=== PATIENT | male | born 2000 | race African-American/Black ===

== ENCOUNTER 2021-04-15 13:40 | Outpatient (REF) | payer OTHER, SELFPAY | END 2021-04-15 13:41 | disposition home or self-care (01) | LOC: HO.LAB 13:40 | PROVIDERS: Visit Provider Internal Medicine | DX: Z20.822 Contact with and (suspected) exposure to COVID-19 (principal) | CPT/HCPCS: C9803; U0003; U0005 ==

== ENCOUNTER 2022-08-23 14:40 | Outpatient (REF) | payer OTHER, SELFPAY ==
[2022-08-23 15:30] LABS: COVID-19 Test Negative (Negative); IDNOW Serial# 9DB6401D
== END 2022-08-23 14:41 | disposition home or self-care (01) ==
LOC: HO.LAB 14:40
PROVIDERS: Visit Provider Internal Medicine
DX: Z20.822 Contact with and (suspected) exposure to COVID-19 (principal)
CPT/HCPCS: 87635; C9803

== ENCOUNTER 2022-10-13 09:13 | Emergency (ER) | payer OTHER, SELFPAY ==
[2022-10-13 09:25] VITALS: BP 143/77; PULSE 74; RESP 16; TEMP 36.4; O2SAT 100; BMI 25.0
--- NOTE | 2022-10-13 10:02 | ED.SKABFB ---
HPI - Skin/Abscess/Foreign Bdy General Chief complaint: Skin/Abscess/Foreign Body Stated complaint: rash all over body Time Seen by Provider: 10/13/22 09:38 Source: patient Mode of arrival: ambulatory History of Present Illness HPI narrative: 21-year-old male with a past medical history of eczema presenting to the ED complaining of worsening eczematous rash x months. Reports as PCP appointment in November, however cannot wait that long. States has never seen a taxi proprietor, and currently does not use any topical or oral medications. Denies new recent exposures, fever, chills, redness, drainage MD complaint: rash Related Data Previous Rx's Medication Instructions Recorded cetirizine 10 mg capsule (Zyrtec) 10 mg PO DAILY PRN allergy 10/13/22 symptoms #14 caps diphenhydramine HCl 25 mg capsule 25 mg PO TID PRN itching #14 caps 10/13/22 (Benadryl) hydrocortisone 1 % lotion 1 appl topical BID PRN rash #120 mL 10/13/22 (Anti-Itch (hydrocortisone)) prednisone 10 mg tablet 10 mg PO DAILY #20 tabs 10/13/22 Allergies Allergy/AdvReac Type Severity Reaction Status Date / Time FRUT SKINS Allergy Intermediate LIPS SWELL Uncoded 03/25/20 17:05 AND ITCHY Review of Systems Review of Systems: Constitutional: No Fever, No Chills ENT/Mouth: No Ear Pain, No Nasal Congestion, No sore throat, No Rhinorrhea, No Swallowing Difficulty Cardiovascular: No Chest Pain, No SOB Respiratory: No Cough, No Sputum Gastrointestinal: No Nausea, No Vomiting, No Diarrhea, No Constipation, No Abdominal pain Genitourinary: No Dysuria, No Urinary Frequency, No Hematuria, No Flank Pain Musculoskeletal: No joint pain, No Myalgias, No Joint Swelling Skin: No Skin Lesions, + rash Neuro: No Weakness Yes all other systems are reviewed and are negative Constitutional: Constitutional: Reports as per [facility] Past Medical History Attestation statement: The following information was validated with the patient. Social History Social History Advance Directives: No Advance Directives Information Provided: Yes Physical Exam Vital Signs: Vital Signs: Last Vital Signs Temp 97.5 F 10/13/22 09:25 Pulse 74 10/13/22 09:25 Resp 16 10/13/22 09:25 BP 143/77 H 10/13/22 09:25 Pulse Ox 100 10/13/22 09:25 O2 Del Method Room Air 10/13/22 09:25 BMI result Body Mass Index 25.0 Const: General: cooperative, healthy appearing and no acute distress Orientation/consciousness: patient oriented x3 Limitations: no limitations HEENT: Head: Yes normal to inspection and Yes atraumatic Ears: hearing grossly normal bilaterally General nose exam: Normal external nose present Face and sinus: Yes normal facial exam Throat: Yes posterior oropharynx normal, Yes tonsils normal, Yes uvula midline, No peritonsillar mass and No uvula laterally displaced Eyes: General: appearance normal, both eyes and all related structures EOM: EOMs intact bilaterally Neck: Neck: Yes normal visual inspection and Yes no meningeal signs Resp: Effort & Inspection: normal respiratory effort and no respiratory distress Auscultation: clear to auscultation bilaterally Cardio: Rate: regular rate Heart sounds: S1 normal heart sound present and S2 normal heart sound present GI: Inspection: Yes normal to inspection Palpation (GI): Soft to palpation, nontender, no guarding and not rigid Skin: Other: + diffuse eczematous rash/dry skin over entire body > abdomen. No palm or sole involvement. No mucous membrane involvement. No overlying erythema/drainage, fluctuance or induration Wounds: no wounds Neuro: General: patient oriented x3, tone normal and no meningeal signs Gait exam (Neuro): Normal gait present Extrem: General: Yes normal to inspection Medical Decision Making Medical Decision Making [facility] Narrative: 21-year-old male with a past medical history of eczema presenting to the ED complaining of worsening eczematous rash x months. On exam vital signs stable, NAD, nontoxic appearing, physical exam as above. No mucous membrane or palm/sole involvement. Exam consistent with eczema. No sloughing. Low suspicion for TENS/SJS Plan: PO Benadryl, Zyrtec, topical hydrocortisone, p.o. prednisone Please refer to course for remaining clinical decision making, interpretation of labs/imaging results, and discussions with consultants and/or family members. Differential Diagnosis Differential Diagnoses: The differential diagnosis associated with the presentation includes As above Admission/Observation Consideration of admission/observation: Escalation of care including admission/observation considered Lab Data MDM Lab Attestation statement: I reviewed the patient's lab results. Radiology Impression Discussion of test interpretation with radiology: I have reviewed the radiologist's reading. External Record Review External record reviewed: Inpatient record, Office record, Outpatient record, Prior outpatient labs, Prior outpatient radiology, Primary care record and Outside ED record Discharge Plan Discharge Clinical Impression: Eczema Patient Disposition: Home, Self-Care Instructions: Dermatitis (ED) Additional Instructions: Please avoid itching her skin Hydrocortisone as a topical steroid, apply to rash only. Please avoid application to face, hands, in genital region as potentially can discolored skin Prednisone as oral steroid Benadryl and Zyrtec will help with itching, Benadryl will make you drowsy, take at night You need to follow-up with her doctor and dermatology Prescriptions: New diphenhydramine HCl [Benadryl] 25 mg capsule 25 mg PO TID PRN (Reason: itching) Qty: 14 0RF Zyrtec 10 mg capsule 10 mg PO DAILY PRN (Reason: allergy symptoms) Qty: 14 0RF hydrocortisone [Anti-Itch (HC)] 1 % lotion 1 appl topical BID PRN (Reason: rash) Qty: 120 0RF prednisone 10 mg tablet 10 mg PO DAILY Qty: 20 0RF Taper: Prednisone 40 mg daily for 3 Days and 0 Hour 30 mg daily for 3 Days and 0 Hour 20 mg daily for 3 Days and 0 Hour 10 mg daily for 3 Days and 0 Hour Rx Instructions: prednisone 10 mg: take 4 tablets (40 mg) for 2 days; 3 tablets (30 mg) for 2 days; 2 (20mg) tablets for 2 days and then 1 (10mg) tablet for 2 days Referrals: Milka Asencio PA [Physician Deputy Fire Chief] - Mike Brown MD [Physician] - Douglas Paredes MD [Physician] - Physician,None [Primary Care Provider] - Stand Alone Forms: Work/School Release Interventions: ED Discharge Assessment Last Done: 10/13/22 10:45 Discharge Date/Time: 10/13/22 10:45
== END 2022-10-13 10:45 | disposition home or self-care (01) ==
PROVIDERS: Emergency Provider Internal Medicine
DX: L30.9 Dermatitis, unspecified (principal); R21 Rash and other nonspecific skin eruption
CPT/HCPCS: 99282; 99283

== ENCOUNTER 2023-09-15 07:26 | Emergency (ER) | payer OTHER, SELFPAY ==
[2023-09-15 07:29] VITALS: BP 135/86; PULSE 79; RESP 18; TEMP 36.1; O2SAT 98; BMI 23.2
--- NOTE | 2023-09-15 07:53 | ED_ITS ---
HPI - Back Pain/Injury General Chief Complaint: Back Pain/Injury Stated Complaint: Low back pain Time Seen by Provider: 09/15/23 07:52 Source: patient Mode of arrival: ambulatory Limitations: no limitations History of Present Illness HPI Narrative: Patient is a 22-year-old male who presents emergency department for evaluation of back pain. He reports 3 days ago he was moving some furniture around when he felt a pulling sensation in the left lower back and an aching pain. Pain is now radiating down the left leg. Denies any history of prior back pain in the past. Denies fevers, chills, burning with micturition, urinary frequency/urgency/hesitancy, bladder or bowel dysfunction, numbness or tingling of the perineum or bilateral legs. Denies any recent surgical procedures, any known immune compromising conditions, personal history of cancer, or IV drug usage. MD elicited complaint: back pain Related Data Previous Rx's Medication Instructions Recorded cetirizine 10 mg capsule (Zyrtec) 10 mg PO DAILY PRN allergy 10/13/22 symptoms #14 caps diphenhydramine HCl 25 mg capsule 25 mg PO TID PRN itching #14 caps 10/13/22 (Benadryl) hydrocortisone 1 % lotion 1 appl topical BID PRN rash #120 mL 10/13/22 (Anti-Itch (hydrocortisone)) prednisone 10 mg tablet 10 mg PO DAILY #20 tabs 10/13/22 cyclobenzaprine 10 mg tablet 10 mg PO TID PRN muscle spasm #14 09/15/23 tabs lidocaine 5 % topical patch 1 patch topical DAILY #15 ea 09/15/23 (Lidoderm) Allergies Allergy/AdvReac Type Severity Reaction Status Date / Time FRUT SKINS Allergy Intermediate LIPS SWELL Uncoded 03/25/20 17:05 AND ITCHY Review of Systems 2 Review of Systems: Constitutional: No weight loss, fever, chills, weakness or fatigue. HEENT: No visual loss, blurred vision, double vision. No hearing loss, sneezing, congestion, runny nose or sore throat. Skin: No rash or itching. Cardiovascular: No chest pain, chest pressure or chest discomfort. No palpitations or pedal edema. Respiratory: No shortness of breath, cough or sputum production. Gastrointestinal: No anorexia, nausea, vomiting or diarrhea. No abdominal pain or blood in stool. Genitourinary: No burning micturition. No urinary frequency or incontinence. Neurologic: No headache, dizziness, syncope, unilateral weakness, ataxia, numbness or tingling in the extremities. No change in bowel or bladder control. Musculoskeletal: + Back pain as noted in HPI. No joint pain or stiffness. Hematologic: No bleeding or bruising. Lymphatics: No enlarged lymph nodes. Psychiatric:No depression or anxiety. Endocrine: No reports of sweating. No cold or heat intolerance. No polyuria or polydipsia. Yes all other systems are reviewed and are negative [facility] Past Medical History Attestation statement: The following information was validated with the patient. Source: old records reviewed Physical Exam Vital Signs: Vital Signs: Last Vital Signs Temp 97 F 09/15/23 07:29 Pulse 79 09/15/23 07:29 Resp 18 09/15/23 07:29 BP 135/86 09/15/23 07:29 Pulse Ox 98 09/15/23 07:29 O2 Del Method Room Air 09/15/23 07:29 BMI result Body Mass Index 23.2 Vital signs have been reviewed as normal and appeared to be correct. Blood pressure normal.? Heart rate normal.? Respiration rate normal. Temperature normal.? Oxygen saturation normal. Appearance: Alert.?Oriented to person, place and time. No acute distress.?Normal affect. Eyes: Pupils equal, round and reactive to light.? ENT: Pharynx normal.?? Neck: Normal inspection.? Neck supple.?? CVS: Heart sounds normal. Normal heart rate and rhythm.? Pulses normal; bilateral radial pulses 2+, bilateral posterior tibial/dorsalis pedis pulses 2+.? Respiratory: No respiratory distress.? Lung sounds clear to auscultation bilaterally?? Abdomen: Soft and non-tender. Normoactive bowel sounds. No pulsatile mass.?? Skin: Skin warm and dry.? Normal skin color.? Normal skin turgor.?? Extremities: No lower extremity edema.? No calf ttp? Back: + mild paraspinal muscular tenderness from lumbar region to coccyx. No CVA tenderness. No midline spinal tenderness, step-off's, or deformity. Full ROM intact in bilateral lower extremities. Straight leg test negative on right; Straight leg test positive on left. No rashes, lesions, areas of induration or fluctuance, or signs of infection noted., Neuro: Moves all extremities spontaneously. 5/5 strength in hip extension/flexion, abduction, adduction. Sensation to light touch intact bilaterally. Patellar and Achilles reflex 2+ bilaterally. No ataxia, gait normal and steady.. No focal neuro deficits. Medical Decision Making Medical Decision Making [facility] Narrative: Patient is a 22-year-old male who presents emergency department for evaluation of back pain as per HPI. Based on history and physical examination Pain is most consistent with muscular pain, although cannot completely exclude herniated disc. On neurological exam there are no deficits. Not consistent with spinal fracture, spinal infection, epidural abscess, AAA, epidural abscess, or dissection. No high risk past medical history including incontinence, fever, immunosuppression, recent surgery or lumbar puncture, coagulopathy, significant trauma, recent unintentional weight loss, pulsatile mass, history of cancer, history of TB, history of IV drug use that would warrant MRI or CT. Not consistent with pyelonephritis, urinary tract infection, renal calculi, appendicitis, diverticulitis. On exam no concern for cauda equina syndrome. No imaging is currently indicated at this time. He is trialed acetaminophen at home without any improvement, he did walk here today therefore discussed with him concern for medicating with muscle relaxer in the emergency department, he will be sent home with a prescription for it in addition to a work note and follow-up with primary care provider, and patient agreed with plan. Differential Diagnosis Differential Diagnoses: The differential diagnosis associated with the presentation includes (As noted above) Admission/Observation Consideration of admission/observation: Escalation of care including admission/observation considered (As noted above) Tests considered The following testing was considered but not selected: See narrative above Prescription Management I considered prescription management with: Pain Medication Discharge Plan Discharge Clinical Impression: Lumbar radiculopathy Patient Disposition: Home, Self-Care Instructions: Lumbar Radiculopathy (ED), Lower Back Exercises (ED) Additional Instructions: You can take ibuprofen 200 mg, 3 tablets (600mg) every 6-8 hours as needed for pain, in addition to Tylenol 500 mg, 2 tablets (1,000mg) every 4-6 hours as needed for pain, but not to exceed 3 doses daily (3,000mg).? As discussed, the muscle relaxer; cyclobenzaprine/Flexeril may make you drowsy, you should not drive, drink alcohol, or work while taking that medication. Apply Lidoderm patch to the area on your left back of most pain leave on for 12 hours and then remove for 12 hours. Follow-up with your primary care provider. You may return back to emergency department any new or worsening symptoms or concerns. Prescriptions: New lidocaine [Lidoderm] 5 % adhesive patch,medicated 1 patch topical DAILY Qty: 15 0RF Rx Instructions: leave on most painful area for up to 12 hrs cyclobenzaprine 10 mg tablet 10 mg PO TID PRN (Reason: muscle spasm) Qty: 14 0RF No Action diphenhydramine HCl [Benadryl] 25 mg capsule 25 mg PO TID PRN (Reason: itching) Qty: 14 0RF Zyrtec 10 mg capsule 10 mg PO DAILY PRN (Reason: allergy symptoms) Qty: 14 0RF hydrocortisone [Anti-Itch (HC)] 1 % lotion 1 appl topical BID PRN (Reason: rash) Qty: 120 0RF prednisone 10 mg tablet 10 mg PO DAILY Qty: 20 0RF Taper: Prednisone 40 mg daily for 3 Days and 0 Hour 30 mg daily for 3 Days and 0 Hour 20 mg daily for 3 Days and 0 Hour 10 mg daily for 3 Days and 0 Hour Rx Instructions: prednisone 10 mg: take 4 tablets (40 mg) for 2 days; 3 tablets (30 mg) for 2 days; 2 (20mg) tablets for 2 days and then 1 (10mg) tablet for 2 days Referrals: Physician,None [Primary Care Provider] - Stand Alone Forms: Work/School Release
== END 2023-09-15 08:21 | disposition home or self-care (01) ==
PROVIDERS: Emergency Provider Student in an Organized Health Care Education/Training Program
DX: M54.16 Radiculopathy, lumbar region (principal)
CPT/HCPCS: 99282; 99283

== ENCOUNTER 2024-08-22 16:21 | Emergency (ER) | payer MEDICAID, SELFPAY ==
[2024-08-22 17:49] VITALS: BP 144/91; PULSE 71; RESP 18; TEMP 36.3; O2SAT 100; BMI 28.1
--- NOTE | 2024-08-22 17:50 | ED.GENADULT ---
HPI - General Adult General Chief complaint: Skin/Abscess/Foreign Body Stated complaint: left foot pinky pain / congestion Time Seen by Provider: 08/22/24 17:50 Source: patient, RN notes reviewed and old records reviewed Mode of arrival: ambulatory Limitations: no limitations History of Present Illness ED Provider: Violette HPI narrative: 23-year-old male presents for evaluation of redness and swelling to his left 5th toe. He reports that he stubbed the toe 4 days ago. He states that the area swelled up and he had pus draining from it which he popped This happened a 2nd time just behind the nail and he popped this yesterday. He reports his pain is improved but states that the swelling is starting to return and he was concerned about an infection No fevers or chills Related Data Previous Rx's ?Medication ?Instructions ?Recorded cetirizine 10 mg capsule (Zyrtec) 10 mg PO DAILY PRN allergy 10/13/22 symptoms #14 caps diphenhydramine HCl 25 mg capsule 25 mg PO TID PRN itching #14 caps 10/13/22 (Benadryl) hydrocortisone 1 % lotion 1 appl topical BID PRN rash #120 mL 10/13/22 (Anti-Itch (hydrocortisone)) prednisone 10 mg tablet 10 mg PO DAILY #20 tabs 10/13/22 cyclobenzaprine 10 mg tablet 10 mg PO TID PRN muscle spasm #14 09/15/23 tabs lidocaine 5 % topical patch 1 patch topical DAILY #15 ea 09/15/23 (Lidoderm) cephalexin 500 mg capsule 500 mg PO QID #28 caps 08/22/24 Allergies Allergy/AdvReac Type Severity Reaction Status Date / Time FRUT SKINS Allergy Intermediate LIPS SWELL Uncoded 08/22/24 17:53 AND ITCHY Review of Systems Constitutional: Constitutional: Denies chills and Denies fever(s) Musculoskeletal: Musculoskeletal: Reports arthralgias Integumentary/Breasts: Skin/Breast: Reports erythema and Denies wounds PMFSH Social History Social History Advance Directives: No Advance Directives Information Provided: No Physical Exam ED Vital Signs: Vital Signs - 24 hr 08/22/24 17:49 Temperature 97.4 F Pulse Rate 71 Respiratory Rate 18 Blood Pressure 144/91 H Pulse Oximetry 100 Oxygen Delivery Method Room Air BMI result Body Mass Index 28.1 Const General: healthy appearing, comfortable, no acute distress, alert and awake Nutritional Appearance: well nourished Orientation/consciousness: patient oriented x3 HENMT Head: Yes normocephalic and Yes atraumatic Eyes Eyelids: Yes eyelids normal Conjunctivae: conjunctivae normal Sclerae: sclerae normal Corneas: corneas normal Pupils: Equal, round and reactive pupils present EOM: EOMs intact bilaterally Neck Neck: Yes full ROM Resp Effort & Inspection: normal respiratory effort, able to speak in complete sentences and not labored Skin General skin exam: elasticity normal Neuro General: patient oriented x3 Cranial nerves: Yes Equal, round and reactive pupils present and Yes Bilaterally intact EOM present Cognition (Neuro): normal cognition Extrem Other: Patient has mild erythema with some edema proximal to the left 5th toe nail plate. Medical Decision Making Medical Decision Making MDM Narrative: 23-year-old male presents for evaluation of left 5th toe pain and swelling. I discussed x-ray imaging with the patient but the patient declined stating he does not feel his toe is broken. He was appear to have a mild paronychia. We will treat with cephalexin. He has no open wounds, there was no risk for open fracture. Differential Diagnosis Differential Diagnoses: The differential diagnosis associated with the presentation includes Paronychia Contusion Subungual hematoma Toe fracture Tests considered The following testing was considered but not selected: Consider x-ray of the left 5th toe with the patient declines Prescription Management I considered prescription management with: Antibiotic Discharge Plan Discharge Clinical Impression: Toe pain, left Patient Disposition: Home, Self-Care Instructions: Paronychia (ED) Additional Instructions: Take the antibiotics 4 times daily for 1 week. You may apply warm compresses Use ibuprofen/Tylenol as needed for pain. Follow-up with your primary doctor Prescriptions: New cephalexin 500 mg capsule 500 mg PO QID Qty: 28 0RF No Action diphenhydramine HCl [Benadryl] 25 mg capsule 25 mg PO TID PRN (Reason: itching) Qty: 14 0RF Zyrtec 10 mg capsule 10 mg PO DAILY PRN (Reason: allergy symptoms) Qty: 14 0RF hydrocortisone [Anti-Itch (HC)] 1 % lotion 1 appl topical BID PRN (Reason: rash) Qty: 120 0RF prednisone 10 mg tablet 10 mg PO DAILY Qty: 20 0RF Taper: Prednisone 40 mg daily for 3 Days and 0 Hour 30 mg daily for 3 Days and 0 Hour 20 mg daily for 3 Days and 0 Hour 10 mg daily for 3 Days and 0 Hour Rx Instructions: prednisone 10 mg: take 4 tablets (40 mg) for 2 days; 3 tablets (30 mg) for 2 days; 2 (20mg) tablets for 2 days and then 1 (10mg) tablet for 2 days lidocaine [Lidoderm] 5 % adhesive patch,medicated 1 patch topical DAILY Qty: 15 0RF Rx Instructions: leave on most painful area for up to 12 hrs cyclobenzaprine 10 mg tablet 10 mg PO TID PRN (Reason: muscle spasm) Qty: 14 0RF Stand Alone Forms: Work/School Release Print Language: Peruvian
[2024-08-22 19:16] VITALS: BP 144/91; PULSE 71; RESP 18; TEMP 36.3; O2SAT 100
== END 2024-08-22 19:16 | disposition home or self-care (01) ==
PROVIDERS: Emergency Provider Emergency Medicine
DX: M79.675 Pain in left toe(s) (principal)
CPT/HCPCS: 99282; 99283

== ENCOUNTER 2025-01-07 02:06 | Emergency (ER) | payer OTHER, SELFPAY ==
--- NOTE | ~2025-01-07 | XR_ITS ---
CLINICAL HISTORY: cough, fever 2 view chest x-ray. Comparison: None Findings: The lungs appear clear. There is no consolidation, effusion, or nodule identified. Cardiomediastinal silhouette is within normal limits. IMPRESSION: No acute cardiopulmonary abnormality. This document has been electronically signed by: Forrest Alcala MD on 01/07/2025 03:38:53
[2025-01-07 02:11] VITALS: BP 141/81; PULSE 100; RESP 20; TEMP 37.1; O2SAT 98; BMI 27.4
--- NOTE | 2025-01-07 02:31 | ED_ITS ---
HPI - URI/Sore Throat General Chief Complaint: General Medical Stated Complaint: ? sinus infection Time Seen by Provider: 01/07/25 02:26 Source: patient Mode of arrival: ambulatory Limitations: no limitations History of Present Illness ED Provider: ANNIE JERRY Narrative: 24 yo male with remote hx of asthma no current inhalers who presents with c/o 1 week of cough, congestion, headaches, sore throat, chills, body aches - he denies travel. He has been taking any OTC he can take last dose yesterday AM. 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 He is able to drink fluids. MD elicited complaint: fever, cough, sore throat, rhinorrhea, nasal congestion and sinus pain Onset (ago): week(s) (1) Consistency: constant Severity: moderate Description of mucous: clear Able to tolerate fluids by mouth: Yes Exacerbating factors: swallowing and leaning forward Relieving factors: nothing Context: sick contacts Associated symptoms: fever, chills, myalgias, headache, rhinorrhea, nasal congestion, sore throat and cough Treatments prior to arrival: acetaminophen, ibuprofen and cold medicine Related Data Previous Rx's ?Medication ?Instructions ?Recorded cetirizine 10 mg capsule (Zyrtec) 10 mg PO DAILY PRN a llergy 10/13/22 symptoms #14 caps diphenhydramine HCl 25 mg capsule 25 mg PO TID PRN itc fabiola #14 caps 10/13/22 (Benadryl) hydrocortisone 1 % lotion 1 appl topical BID PRN rash #120 mL 10/13/22 (Anti-Itch (hydrocortisone)) prednisone 10 mg tablet 10 mg PO DAILY #20 tabs 04/01/28 cyclobenzaprine 10 mg tablet 10 mg PO TID PRN muscle s pasm #14 09/15/23 tabs lidocaine 5 % topical patch 1 patch topical DAILY #15 ea 09/15/23 (Lidoderm) cephalexin 500 mg capsule 500 mg PO QID #28 caps 08/22 amoxicillin 500 mg capsule 500 mg PO BID 10 days #20 c aps 01/07/25 prednisone 20 mg tablet 40 mg (2 x 20 mg) PO DAILY 4 days 01/07/25 #8 tabs Allergies Allergy/AdvReac Type Severity Reaction Status Date / Time FRUT SKINS Allergy Intermediate LIPS SWELL Uncoded 01/07/25 02:14 AND ITCHY Review of Systems Review of Systems: Constitutional : positive Fever, positive Chills, positive fatigue, positive Malaise ENT/Mouth : positive sore throat, positive runny nose Eyes: No Discharge Cardiovascular : No Chest Pain, No SOB Respiratory : pos Cough, No Sputum Gastrointestinal : No Nausea, No Vomiting, No Diarrhea Genitourinary : No Dysuria, No Urinary Frequency Musculoskeletal : positive Myalgia Skin : No rash Neuro : pos Headache all other systems reviewed and are negative [facility] Past Medical History Attestation statement: The following information was validated with the patient. Source: old records reviewed Medical History (Updated 01/07/25 @ 03:21 by Brenda Alan DO) Asthma Social History Social History (Updated 01/07/25 @ 03:14 by Brenda Alan DO) Patient Tobacco Use Status: Never used Tobacco Advance Directives: No Do you have a plan to hurt others: No Plan Physical Exam Vital Signs: Vital Signs: Last Vital Signs Temp 98.7 F 01/07/25 03:00 Pulse 100 01/07/25 02:11 Resp 20 01/07/25 02:11 BP 141/81 H 01/07/25 02:11 Pulse Ox 98 01/07/25 02:11 O2 Del Method Room Air 01/07/25 02:11 BMI result Body Mass Index 27.4 Appearance: Alert. Oriented X3. No acute distress. Eyes: Pupils equal, round and reactive to light. ENT: Pharynx erythema with mild tonsilar swelling but petechia noted on uvula, uvula is midline, voice is normal Neck: Normal inspection. Neck supple. CVS: Normal heart rate and rhythm. Pulses normal. Respiratory: No respiratory distress. Breath sounds slightly diminished upper lobes with faint end exp wheezes Abdomen: Soft and nontender. Skin: Skin warm and dry. Normal skin color. Extremities: No lower extremity edema. Neuro: Oriented X 3. No motor deficit. No sensory deficit. CN2-12 intact Medications Administered Discontinued Medications Generic Name Dose Route Start Last Admin Trade Name Freq PRN Reason Stop Dose Admin Albuterol Sulfate 2 puff 01/07/25 02:44 01/07/25 02:55 Albuterol Sulfate 90 Mcg 8 Gm Inhaler INHALE 01/07/25 02:45 2 puff ONCE ONE Administration Ketorolac Tromethamine 30 mg 01/07/25 02:44 01/07/25 02:55 Ketorolac Tromethamine 30 Mg/Ml Vial IM 01/07/25 02:45 30 mg ONCE ONE Administration Prednisone 40 mg 01/07/25 02:44 01/07/25 02:55 Prednisone 20 Mg Tablet PO 01/07/25 02:45 40 mg ONCE ONE Administration Medical Decision Making Medical Decision Making MDM Narrative: 24 yo male with remote hx of asthma here with c/o URI symptoms, not feeling well, cough, he has some wheezes on exam I ordered prednisone, albuterol and will need CXR, viral panel, strep swab. He has no signs of deeper space infection. He is not toxic appearing and no labored breathing. Differential Diagnosis Differential Diagnoses: The differential diagnosis associated with the pre sentation includes URI, viral sydnrome, bronchitis, strep, sinus infection Admission/Observation Consideration of admission/observation: Escalation of care including admission/observation considered not toxic stable for DC Lab Data [facility] Lab Attestation statement: I reviewed the patient's lab results. Labs: Lab Results 01/07/25 Range/Units 02:30 Influenza Type A (PCR) NEGATIVE (Negative) Influenza Type B (PCR) NEGATIVE (Negative) RSV RNA Qual (PCR) NEGATIVE (Negative) SARS-CoV-2 RNA (RT-PCR) NEGATIVE (Negative) S. pyogenes GrpA CHRISTIANA Positive A (Negative) Independent Interpretation I performed an independent interpretation of an: Plain X-Ray (normal ) Radiology Impression Discussion of test interpretation with radiology: I have reviewed the radiologist's reading. External Record Review External record reviewed: Outpatient record Prescription Management I considered prescription management with: Antibiotic and Other Discharge Plan Discharge Clinical Impression: Strep throat Patient Disposition: Home, Self-Care Instructions: Strep Throat (ED) Additional Instructions: rest and stay hydrated positive for strep throat negative for covid flu rsv chest xray normal take all medications with food throw away toothbrush in 24 hours return for any worsening symptoms or concerns can use inhaler 2 puffs every 4 hours for wheezing Prescriptions: New amoxicillin 500 mg capsule 500 mg PO BID 10 Days Qty: 20 0RF prednisone 20 mg tablet 40 mg PO DAILY 4 Days Qty: 8 0RF No Action diphenhydramine HCl [Benadryl] 25 mg capsule 25 mg PO TID PRN (Reason: itching) Qty: 14 0RF Zyrtec 10 mg capsule 10 mg PO DAILY PRN (Reason: allergy symptoms) Qty: 14 0RF hydrocortisone [Anti-Itch (HC)] 1 % lotion 1 appl topical BID PRN (Reason: rash) Qty: 120 0RF prednisone 10 mg tablet 10 mg PO DAILY Qty: 20 0RF Taper: Prednisone 40 mg daily for 3 Days and 0 Hour 30 mg daily for 3 Days and 0 Hour 20 mg daily for 3 Days and 0 Hour 10 mg daily for 3 Days and 0 Hour Rx Instructions: prednisone 10 mg: take 4 tablets (40 mg) for 2 days; 3 tablets (30 mg) for 2 days; 2 (20mg) tablets for 2 days and then 1 (10mg) tablet for 2 days lidocaine [Lidoderm] 5 % adhesive patch,medicated 1 patch topical DAILY Qty: 15 0RF Rx Instructions: leave on most painful area for up to 12 hrs cyclobenzaprine 10 mg tablet 10 mg PO TID PRN (Reason: muscle spasm) Qty: 14 0RF cephalexin 500 mg capsule 500 mg PO QID Qty: 28 0RF Stand Alone Forms: Work/School Release Print Language: Telugu
[2025-01-07] MEDS: Albuterol Sulfate 90 MCG 8 GM INHALER 2 PUFF INHALE (02:55)
[2025-01-07 03:00] VITALS: TEMP 37.1
[2025-01-07 03:09] LABS: IDNOW Serial# 58CA691E; Strep A Nucleic Acid Positive (Negative)
[2025-01-07 03:31] LABS: Resp Syncy Virus RNA Qual PCR NEGATIVE (Negative); SARS COV2 PCR INHOUSE NEGATIVE (Negative)
[2025-01-07 03:52] VITALS: BP 132/82; PULSE 84; RESP 16; TEMP 37.1; O2SAT 98
== END 2025-01-07 03:54 | disposition home or self-care (01) ==
PROVIDERS: Emergency Provider Emergency Medicine
DX: J02.0 Streptococcal pharyngitis (principal); B95.0 Streptococcus, group A, as the cause of diseases classified elsewhere; R05.9 Cough, unspecified; R09.81 Nasal congestion; R51.9 Headache, unspecified; J02.9 Acute pharyngitis, unspecified
CPT/HCPCS: 71046; 87637; 87651; 96372; 99284; J1885

== ENCOUNTER → 2025-01-07 02:44 | Outpatient (BNV) | payer OTHER, SELFPAY | PROVIDERS: Emergency Provider Emergency Medicine; Visit Provider Radiology Diagnostic Radiology | DX: R05.9 Cough, unspecified (principal); R50.9 Fever, unspecified | CPT/HCPCS: 71046 ==

== ENCOUNTER 2025-06-07 05:16 | Emergency (ER) | payer OTHER, SELFPAY ==
[2025-06-07 05:19] VITALS: BP 159/74; PULSE 84; RESP 16; TEMP 36.9; O2SAT 96; BMI 28.8
[2025-06-07 05:36] LABS: MANUAL DIFF FLAG NO
[2025-06-07 05:37] LABS: Hematocrit 47.3 % (42.0-52.0); Hemoglobin 15.6 g/dl (14.0-18.0); Imm Gran Abs Auto 0.02 X10*3/uL (0.00-0.03); Imm Gran Pct Auto 0.2 % (0.0-0.4); Lymphocytes Absolute Auto 2.3 X10*3/uL (1.2-4.9); Mean Corpuscular HGB Conc 33.0 g/dl (31.0-36.0); Mean Corpuscular Hemoglobin 29.1 pg (27.0-33.0); Mean Corpuscular Volume 88.1 fL (80.0-98.0); NRBC Abs Auto 0.000 X10*3/uL (0.0-0.012); NRBC Pct Auto 0.0 /100WBC (0.0-0.2); Platelet Count 247 X10*3/uL (160-400); Red Blood Count 5.37 X10*6/uL (4.60-5.80); White Blood Count 10.8 X10*3/uL (4.8-10.8)
[2025-06-07 05:58] LABS: Alanine Aminotransferase 21 U/L (0-40); Albumin Level 4.7 g/dL (3.5-5.0); Alkaline Phosphatase 97 U/L (39-117); Anion Gap 14 (12-20); Aspartate Amino Transferase 28 U/L (5-37); Blood Urea Nitrogen 12 mg/dL (9-16); Calcium 9.0 mg/dL (8.4-10.2); Carbon Dioxide 24 mmol/L (22-29); Chloride 107 mmol/L (96-108); Creatinine Clr Calc Pharmacy 123.4; Estimated Glomerular Filt Rate > 60; Magnesium 1.7 mg/dL (1.6-2.6); Potassium 3.9 mmol/L (3.3-5.1); Sodium 141 mmol/L (135-145); Total Protein 8.0 g/dL (6.5-8.0)
[2025-06-07 06:13] LABS: Resp Syncy Virus RNA Qual PCR NEGATIVE (Negative); SARS COV2 PCR INHOUSE NEGATIVE (Negative)
--- NOTE | 2025-06-07 07:51 | ED_ITS ---
HPI - URI/Sore Throat General Chief Complaint: Upper Respiratory Symptoms Stated Complaint: Cough Congestion Running Nose Time Seen by Provider: 06/07/25 07:20 Source: patient Mode of arrival: ambulatory Limitations: no limitations History of Present Illness ED Provider: DURAN Laura HPI Narrative: Chief Complaint: ?I?ve had a wet cough for about two weeks and I?m tired of it.? History of Present Illness: The patient is a 24-year-old male who presents with a two-week history of a productive, wet cough. Sputum is described as thick and yellow. He reports intermittent subjective fevers at home that improve with ibuprofen. He has experienced two episodes of nausea and vomiting since yesterday but denies abdominal pain. He is seeking care today because the cough persists and he generally feels unwell. Past history is notable for remote asthma; he does not routinely use inhalers and states his asthma has been well controlled without complications. Related Data Previous Rx's ?Medication ?Instructions ?Recorded cetirizine 10 mg capsule (Zyrtec) 10 mg PO DAILY PRN a llergy 10/13/22 symptoms #14 caps diphenhydramine HCl 25 mg capsule 25 mg PO TID PRN itc fabiola #14 caps 10/13/22 (Benadryl) hydrocortisone 1 % lotion 1 appl topical BID PRN rash #120 mL 10/13/22 (Anti-Itch (hydrocortisone)) prednisone 10 mg tablet 10 mg PO DAILY #20 tabs 01/28 cyclobenzaprine 10 mg tablet 10 mg PO TID PRN muscle s pasm #14 09/15/23 tabs lidocaine 5 % topical patch 1 patch topical DAILY #15 ea 09/15/23 (Lidoderm) cephalexin 500 mg capsule 500 mg PO QID #28 caps 08/22 amoxicillin 500 mg capsule 500 mg PO BID 10 days #20 c aps 01/07/25 prednisone 20 mg tablet 40 mg (2 x 20 mg) PO DAILY 4 days 01/07/25 #8 tabs albuterol sulfate 90 mcg/actuation 2 inh inhalation Q4 -6H PRN 06/07/25 breath activated powder inhaler shortness of breath or wheezing #1 ea benzonatate 100 mg capsule 100 mg PO BID PRN cough #20 caps 06/07/25 doxycycline hyclate 100 mg capsule 100 mg PO BID 10 da ys #20 caps 06/07/25 prednisone 20 mg tablet 40 mg (2 x 20 mg) PO DAILY 5 days 06/07/25 #10 tabs Allergies Allergy/AdvReac Type Severity Reaction Status Date / Time FRUT SKINS Allergy Intermediate LIPS SWELL Uncoded 06/07/25 05:24 AND ITCHY Review of Systems 2 Review of Systems: Yes all other systems are reviewed and are negative [facility] Past Medical History Attestation statement: The following information was validated with the patient. Source: old records reviewed and nursing notes reviewed Medical History Asthma Social History Social History Patient Tobacco Use Status: Never used Tobacco Smoked in Last 30 Days: No Use of substances other than those prescribed or required for medical reasons: No Advance Directives: No Advance Directives Information Provided: Yes Do you have a plan to hurt others: No Plan Physical Exam 2 Exam: Exam: General: Well-appearing male in no acute distress. Cardiovascular: Regular rate and rhythm. Respiratory: Crackles auscultated in the right lower lobe; lungs otherwise clear to auscultation bilaterally. Abdomen: Soft, non-tender, non-distended. Strength: 5/5 UE and LE Neurological: Alert and oriented ?4; cranial nerves II?XII grossly intact. Vital Signs: Vital Signs: Last Vital Signs Temp 98.4 F 06/07/25 08:22 Pulse 76 06/07/25 08:22 Resp 18 06/07/25 08:22 BP 136/64 06/07/25 08:22 Pulse Ox 99 06/07/25 08:22 O2 Del Method Room Air 06/07/25 08:22 BMI result Body Mass Index 28.8 vss Course Reevaluation(s) Reevaluation #1: CBC unremarkable. Chemistry with no acute findings needing intervention. Flu, COVID, RSV negative. Patient's vital signs stable he saturating 99% on room air even after ambulation. Patient to be discharged home with p.o. antibiotics steroids and something for cough. Educated patient on diagnosis and treatment plan, answered all question, patient verbalizes understanding. At this time patient will be discharged home, advised to return with new or worsening symptoms. Educated on worrisome signs and symptoms and when to return. At this time I feel comfortable discharge home. Time: 08:25 Medical Decision Making Medical Decision Making [facility] Narrative: 0800 The clinical presentation and exam are most consistent with a right lower lobe pneumonia/bronchitis. Problem #1: Right lower lobe pneumonia / bronchitis Assessment: Two-week productive cough with yellow sputum, intermittent fevers, and focal crackles in the right lower lobe support an infectious etiology (community-acquired pneumonia vs. bronchitis). Plan: * Doxycycline 100 mg orally twice daily for 7 days. * Prednisone (dose discussed with patient). * Benzonatate pearls for cough suppression. * Chest X-ray was considered but deferred as findings would not alter current treatment. * Advised to return with no worsening symptoms. Problem #2: History of asthma (remote, generally well controlled) Assessment: Remote asthma without current daily therapy; no acute exacerbation noted today. Plan: * Rescue inhaler provided for symptomatic relief as needed. Disposition * Patient will be discharged home. * Work note provided excusing patient from work until Sunday. Differential Diagnosis Differential Diagnoses: The differential diagnosis associated with the presentation includes * Community-acquired pneumonia: Most likely, given the presence of focal crackles in the right lower lobe, productive cough with yellow sputum, and intermittent fevers. * Acute bronchitis: Also possible, as the patient has a prolonged cough and sputum production, though focal crackles and fever make pneumonia more likely. * Asthma exacerbation: Less likely, given the remote history of asthma, lack of current wheezing, and absence of inhaler use or recent symptoms. * Viral respiratory infection (e.g., influenza, RSV): Considered, as viral infections can cause cough and fever, but the focal exam findings and sputum color suggest a bacterial process. * Post-infectious cough: Possible, but less likely given ongoing fever and focal lung findings. * Atypical pneumonia (e.g., Mycoplasma): Less likely, as these typically present with more diffuse symptoms and less focal exam findings. * Pulmonary embolism: Unlikely, but should be considered if symptoms worsen or new risk factors develop, as PE can present with cough and nonspecific symptoms. Admission/Observation Consideration of admission/observation: Escalation of care including admission/observation considered (No indication . VSS ) Lab Data [facility] Lab Attestation statement: I reviewed the patient's lab results. 06/07/25 05:31 06/07/25 05:31 Labs: Lab Results 06/07/25 Range/Units 05:31 WBC 10.8 (4.8-10.8) X10*3/uL RBC 5.37 (4.60-5.80) X10*6/uL Hgb 15.6 (14.0-18.0) g/dl Hct 47.3 (42.0-52.0) % MCV 88.1 (80.0-98.0) fL MCH 29.1 (27.0-33.0) pg MCHC 33.0 (31.0-36.0) g/dl RDW 12.9 (11.0-16.0) % Plt Count 247 (160-400) X10*3/uL MPV 8.5 L (9.4-12.4) fL Immature Gran % (Auto) 0.2 (0.0-0.4) % Neut % (Auto) 64.8 (45-73) % Lymph % (Auto) 21.5 (20-40) % [place] % (Auto) 10.4 (2-11) % Eos % (Auto) 2.5 (0-4) % Baso % (Auto) 0.6 (0-2) % Lymph # (Auto) 2.3 (1.2-4.9) X10*3/uL [place] # (Auto) 1.1 (0.1-1.2) X10*3/uL Eos # (Auto) 0.3 (0.0-0.4) X10*3/uL Baso # (Auto) 0.1 (0.0-0.2) X10*3/uL Abs Immat Gran (auto) 0.02 (0.00-0.03) X10*3/uL Absolute Neuts (auto) 7.0 (2.0-8.3) x10*3/uL Absolute Nucleated RBC 0.000 (0.0-0.012) X10*3/uL Nucleated RBC % (auto) 0.0 (0.0-0.2) /100WBC Sodium 141 (135-145) mmol/L Potassium 3.9 (3.3-5.1) mmol/L Chloride 107 (96-108) mmol/L Carbon Dioxide 24 (22-29) mmol/L Anion Gap 14 (12-20) BUN 12 (9-16) mg/dL Creatinine 1.25 (0.5-1.4) mg/dL Estim Creat Clear Calc 123.4 Estimated GFR > 60 Random Glucose 96 (60-115) mg/dL Calcium 9.0 (8.4-10.2) mg/dL Magnesium 1.7 (1.6-2.6) mg/dL Total Bilirubin 0.5 (0.0-1.0) mg/dL AST 28 (5-37) U/L ALT 21 (0-40) U/L Alkaline Phosphatase 97 (39-117) U/L Total Protein 8.0 (6.5-8.0) g/dL Albumin 4.7 (3.5-5.0) g/dL Influenza Type A (PCR) NEGATIVE (Negative) Influenza Type B (PCR) NEGATIVE (Negative) RSV RNA Qual (PCR) NEGATIVE (Negative) SARS-CoV-2 RNA (RT-PCR) NEGATIVE (Negative) External Record Review External record reviewed: Office record, Outpatient record, Prior outpatient labs and Prior outpatient radiology Tests considered The following testing was considered but not selected: Consider chest x-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 If you were prescribed antibiotics today, it is important that you take your medication to their entirety, do not skip any doses, do not finish them early. Follow-up with your primary care provider this week. Return to the emergency department with new or worsening symptoms. In case of emergency call 911 Prescriptions: New benzonatate 100 mg capsule 100 mg PO BID PRN (Reason: cough) Qty: 20 0RF doxycycline hyclate 100 mg capsule 100 mg PO BID 10 Days Qty: 20 0RF prednisone 20 mg tablet 40 mg PO DAILY 5 Days Qty: 10 0RF albuterol sulfate 90 mcg/actuation aerosol powdr breath activated 2 inh inhalation Q4-6H PRN (Reason: shortness of breath or wheezing) Qty: 1 0RF No Action diphenhydramine HCl [Benadryl] 25 mg capsule 25 mg PO TID PRN (Reason: itching) Qty: 14 0RF Zyrtec 10 mg capsule 10 mg PO DAILY PRN (Reason: allergy symptoms) Qty: 14 0RF hydrocortisone [Anti-Itch (HC)] 1 % lotion 1 appl topical BID PRN (Reason: rash) Qty: 120 0RF prednisone 10 mg tablet 10 mg PO DAILY Qty: 20 0RF Taper: Prednisone 40 mg daily for 3 Days and 0 Hour 30 mg daily for 3 Days and 0 Hour 20 mg daily for 3 Days and 0 Hour 10 mg daily for 3 Days and 0 Hour Rx Instructions: prednisone 10 mg: take 4 tablets (40 mg) for 2 days; 3 tablets (30 mg) for 2 days; 2 (20mg) tablets for 2 days and then 1 (10mg) tablet for 2 days lidocaine [Lidoderm] 5 % adhesive patch,medicated 1 patch topical DAILY Qty: 15 0RF Rx Instructions: leave on most painful area for up to 12 hrs cyclobenzaprine 10 mg tablet 10 mg PO TID PRN (Reason: muscle spasm) Qty: 14 0RF cephalexin 500 mg capsule 500 mg PO QID Qty: 28 0RF amoxicillin 500 mg capsule 500 mg PO BID 10 Days Qty: 20 0RF prednisone 20 mg tablet 40 mg PO DAILY 4 Days Qty: 8 0RF Referrals: Physician,Unknown J [Primary Care Provider, Medical] Stand Alone Forms: Work/School Release Interventions: ED Discharge Assessment Last Done: 06/07/25 08:22 Print Language: British
[2025-06-07 08:18] VITALS: O2SAT 99
[2025-06-07 08:21] VITALS: BP 136/64; PULSE 76; RESP 18; TEMP 36.9; O2SAT 99
[2025-06-07 08:22] VITALS: BP 136/64; PULSE 76; RESP 18; TEMP 36.9; O2SAT 99
== END 2025-06-07 08:22 | disposition home or self-care (01) ==
PROVIDERS: Emergency Provider Emergency Medicine Emergency Medical Services
DX: R05.9 Cough, unspecified (principal); J06.9 Acute upper respiratory infection, unspecified; Z03.818 Encounter for observation for suspected exposure to other biological agents ruled out; R11.2 Nausea with vomiting, unspecified
CPT/HCPCS: 80053; 83735; 85025; 87637; 99283; 99284